=== PATIENT | male | born 1960 | race Asian ===

== ENCOUNTER 2016-08-10 04:57 | Emergency (ER) | payer OTHER ==
[~2016-08-10] VITALS: Ht 170.2 cm; Wt 70.3 kg
--- NOTE | 2016-08-10 04:57 | NUR ---
Patient to [facility] for evaluation. Side rails up. Report given to NILAM Herrera.
--- NOTE | 2016-08-10 04:58 | NUR ---
Pt brought in by [facility] in stable condition. Pt able to ambulate to hallway chair. Pt here for blood alcohol draw. Pt denies any pain or complaints at this time. -sob -chest pain. No acute distress noted at this time, will continue to monitor.
[2016-08-10 05:05] VITALS: BP 121/73; PULSE 133; RESP 14; TEMP 98.1; O2SAT 95
--- NOTE | 2016-08-10 05:05 | NUR ---
MD Owen examining pt in the hallway
--- NOTE | 2016-08-10 05:27 | NUR ---
Written and verbal consent obtained from patient for blood alcohol, name and verified by patient. Disinfected patient's skin with betadine that did not contain alcohol or other volatile organic compound. Collected the blood from the subject named by venipuncture, in the presence of Officer Dino epstein# [id number]. Used a sterile, dry hypodermic needle and dry vacuum blood collection. The dry vacuum blood collection was supplied by the officer named above. Withdrew a specimen of blood from right forearm of the subject named above. Inverted the blood tube several times to ensure that the preservative and anticoagulant were thoroughly mixed in the blood specimen. I initialed the blood tube label for identification. The labeled blood tube was handed directly to the Officer named above. The blood tube stopper remained in place while I had possession of the blood tube. The Officer placed tube into envelope and sealed it in my presence. Envelope initialed by myself and Officer named above. Patient tolerated well, bandage applied, and bleeding controlled.
--- NOTE | 2016-08-10 05:31 | NUR ---
Patient given written and verbal discharge instructions and verbalizes understanding. ER MD Owen discussed with patient the results and treatment provided. Patient in stable condition. ID arm band removed. No rx given. Patient educated on pain management and to follow up with PMD. Pain Scale 0/10 Opportunity for questions provided and answered. Pt accompanied by [facility]
[2016-08-10 05:35] VITALS: BP 120/76; PULSE 116; RESP 16; TEMP 98.1; O2SAT 96
== END 2016-08-10 05:31 ==
LOC: SED 04:57
DX: Z02.89 Encounter for other administrative examinations (principal)
CPT/HCPCS: 99283